=== PATIENT | female | born 1955 | race Caucasian/White ===

== ENCOUNTER → 2023-06-06 14:14 | Outpatient (CLI) | payer MEDICARE, SELFPAY ==
[2023-06-06 14:53] LABS: Add Manual Diff / Slide Review NO; Basophils Absolute Auto 100 /uL (0-100); Basophils Percent Auto 0.8 % (0-2); Eosinophils Absolute Auto 400 /uL (0-450); Eosinophils Percent Auto 5.7 % (2-4); Hematocrit 39.3 % (36-46); Hemoglobin 13.4 g/dL (12.0-16.0); Lymphocytes Absolute Auto 1600 /uL (1100-4500); Lymphocytes Percent Auto 24.6 % (25-40); Mean Corpuscular HGB Conc 34.2 % (30-36); Mean Corpuscular Hemoglobin 34.8 PG (26-34); Mean Corpuscular Volume 101.7 fL (80-100); Monocytes Absolute Auto 300 /uL (0-900); Monocytes Percent Auto 4.8 % (3-14); Neutrophils Absolute Auto 4200 /uL (1500-7000); Neutrophils Percent Auto 64.1 % (50-75); Platelet Count 240 X10^3/uL (150-400); Red Blood Cell Count 3.86 X10^6/uL (4.0-5.2); Red Cell Distribution Width 14.5 % (11.6-14.8); White Blood Cell Count 6.6 X10^3/uL (4.5-11.0)
[2023-06-06 15:23] LABS: Alanine Aminotransferase 41 IU/L (<35); Albumin 4.5 g/dL (3.5-5.0); Albumin Globulin Ratio 1.7 (1.0-2.8); Alkaline Phosphatase 82 U/L (38-126); Aspartate Aminotransferase 40 IU/L (14-36); BUN Creatinine Ratio 21.9 (6-22); Bilirubin Total 0.5 mg/dL (0.2-1.3); Blood Urea Nitrogen 23 mg/dL (7-17); Calcium 9.2 mg/dL (8.4-10.2); Carbon Dioxide 31 mmol/L (22-32); Chloride 100 mmol/L (98-107); Cholesterol 294 mg/dL (140-199); Estimated Glomerular Filt Rate 59 mL/min (>60); Globulin 2.7 g/dL (1.7-4.1); Glucose 146 mg/dL (80-110); HEMOLYSIS < 15 (0-50); Hemoglobin A1C% w Est Avg Glu 5.4 % (4.0-6.0); Potassium 4.3 mmol/L (3.4-5.1); Sodium 137 mmol/L (137-145); Total Protein 7.2 g/dL (6.3-8.2); Triglycerides 146 mg/dL (35-150)
[2023-06-06 15:31] LABS: HDL Cholesterol 125 mg/dL (40-60); LDL Cholesterol Calculated 140 mg/dL (<100)
[2023-06-06 15:51] LABS: TSH w/ Reflex to FT4 2.23 uIU/mL (0.47-4.68)
[2023-06-06 18:30] LABS: Creatinine Urine Random 110.4 mg/dL
[2023-06-06 18:35] LABS: Microalbumi Creatinin Ratio Ur 48.9 ug/mg CR (<30); Microalbumin Urine Random 5.4 mg/dL (0-1.6)
== END ==
PROVIDERS: PCP Family Medicine; Referring Provider Family Medicine; Visit Provider Family Medicine
DX: G25.0 Essential tremor (principal); I10 Essential (primary) hypertension; E78.5 Hyperlipidemia, unspecified; E03.9 Hypothyroidism, unspecified
CPT/HCPCS: 36415; 80053; 80061; 82043; 82570; 83036; 84443; 85025

== ENCOUNTER → 2023-09-19 13:20 | Outpatient (CLI) | payer MEDICARE, SELFPAY ==
[2023-09-19 13:52] LABS: Add Manual Diff / Slide Review NO; Basophils Absolute Auto 0 /uL (0-100); Basophils Percent Auto 0.4 % (0-2); Eosinophils Absolute Auto 100 /uL (0-450); Eosinophils Percent Auto 1.1 % (2-4); Hematocrit 36.6 % (36-46); Hemoglobin 12.8 g/dL (12.0-16.0); Lymphocytes Absolute Auto 1500 /uL (1100-4500); Lymphocytes Percent Auto 13.7 % (25-40); Mean Corpuscular Hemoglobin 36.1 PG (26-34); Monocytes Absolute Auto 700 /uL (0-900); Monocytes Percent Auto 6.7 % (3-14); Neutrophils Absolute Auto 8700 /uL (1500-7000); Neutrophils Percent Auto 78.1 % (50-75); Platelet Count 265 X10^3/uL (150-400); Red Blood Cell Count 3.55 X10^6/uL (4.0-5.2); White Blood Cell Count 11.2 X10^3/uL (4.5-11.0)
[2023-09-19 13:58] LABS: Hemoglobin A1C% w Est Avg Glu 4.9 % (4.0-6.0)
[2023-09-19 14:14] LABS: Albumin 4.4 g/dL (3.5-5.0); BUN Creatinine Ratio 20.8 (6-22); Blood Urea Nitrogen 20 mg/dL (7-17); C-Reactive Protein Quant 8.9 mg/dL (<1.0); Calcium 9.4 mg/dL (8.4-10.2); Carbon Dioxide 27 mmol/L (22-32); Chloride 103 mmol/L (98-107); Estimated Glomerular Filt Rate > 60 mL/min (>60); Glucose 111 mg/dL (80-110); HEMOLYSIS < 15 (0-50); Potassium 4.1 mmol/L (3.4-5.1); Sodium 139 mmol/L (137-145)
[2023-09-19 14:26] LABS: Prealbumin 27.4 mg/dL (17.6-36.0)
[2023-09-19 14:29] LABS: Erythrocyte Sedimentation Rate 29 MM/HR (0-20)
[2023-09-19 14:43] LABS: Vitamin D 25 Hydroxy (D3) 49.4 ng/mL (30.0-100.0)
== END ==
PROVIDERS: PCP Family Medicine; Referring Provider Orthopaedic Surgery Adult Reconstructive Orthopaedic Surgery; Visit Provider Orthopaedic Surgery Adult Reconstructive Orthopaedic Surgery
DX: R77.0 Abnormality of albumin (principal); R73.9 Hyperglycemia, unspecified; E55.9 Vitamin D deficiency, unspecified; Z01.812 Encounter for preprocedural laboratory examination; R70.0 Elevated erythrocyte sedimentation rate; R79.82 Elevated C-reactive protein (CRP)
CPT/HCPCS: 36415; 80048; 82040; 82306; 83036; 84134; 85025; 85651; 86140

== ENCOUNTER → 2023-11-21 15:25 | Outpatient (CLI) | payer MEDICARE, SELFPAY ==
--- NOTE | 2023-11-21 15:26 | DI.RAD.S_ITS ---
PROCEDURE: XR DEXA AXIAL SKELETON INDICATIONS: screening COMPARISON: None. FINDINGS: Lumbar Spine: Bone mineral density 1.338 g/cm2, T score 2.6 Left Hip: Bone mineral density 1.165 g/cm2, T score 1.8 Left Forearm: Bone mineral density 0.67 g/cm2, T score 0.9 Fracture Risk Calculation (when applicable): 10-year fracture risk of a major osteoporotic fracture 8 percent and of a hip fracture 0.1 percent. (T score greater or equal to -1.0 to: NORMAL) (T score from -1.1 to -2.4: OSTEOPENIA) (T score less than or equal to -2.5: OSTEOPOROSIS) IMPRESSION: Normal bone mineral density of the lumbar spine, left hip, and left forearm. Follow-up guidelines as follows: Osteoporosis: Consider a repeat DEXA and Vertebral Fracture Assessment (VFA) exam in 2 years or sooner if medically necessary, to reassess this patient's status. Osteopenia: Consider a repeat DEXA in 2-3 years to reassess this patient's status, or if there is a new clinical indication. Normal: Consider a repeat DEXA in 5 years or sooner, or if there is a new clinical indication. All treatment decisions require clinical judgment and consideration of individual patient factors, including patient preferences, comorbidities, previous drug use, risk factors not captured in the FRAX model (e.g., frailty, falls, vitamin D deficiency, increased bone turnover, interval significant decline in bone density ) and possible under- or over-estimation of fracture risk by FRAX. In addition, the NOF Guide recommends that FDA-approved medical therapies be considered in postmenopausal women and men age >= 50 years with a: * Hip or vertebral (clinical or morphometric) fracture * T-score of <=-2.5 at the spine or hip * Ten-year fracture probability by FRAX of >= 3% for hip fracture or >=20% for major osteoporotic fracture. People with diagnosed cases of osteoporosis or at high risk for fracture should have regular bone mineral density tests. For patients eligible for Medicare, routine testing is allowed once every 2 years. The testing frequency can be increased to one year for patients who have rapidly progressing disease, those who are receiving or discontinuing medical therapy to restore bone mass, or have additional risk factors. Dictated by: Maurizio Alves M.D. on 11/21/2023 at 16:34 Approved by: Maurizio Alves M.D. on 11/21/2023 at 16:36
--- NOTE | 2023-11-21 15:26 | DI.MG.S_ITS ---
BILATERAL DIGITAL SCREENING MAMMOGRAM 3D/2D WITH CAD: 11/21/2023 CLINICAL: Routine screening. Comparison is made to exams dated: 03/28/2021 mammogram and 11/10/2018 mammogram - outside facility. There are scattered areas of fibroglandular density (category b / 25%-50% glandular tissue). Current study was also evaluated with a Computer Aided Detection (CAD) system. No significant masses, calcifications, or other findings are seen in either breast. There has been no significant interval change. IMPRESSION: NEGATIVE There is no mammographic evidence of malignancy. A 1 year screening mammogram is recommended. Based on the Tyrer Cuzick model (a risk assessment model) the patient's lifetime risk is 4.7% and her 10 year risk is 2.4%. According to the ACR, ACS, and NCCN guidelines, an annual breast MRI exam along with mammogram is recommended if the patient's lifetime risk is 20% or greater. This exam was interpreted at Station ID: [id number]. NOTE: For mammograms, a report in lay terms will be sent to the patient. Approximately 15% of breast malignancies will not be visualized mammographically. In the management of a palpable breast mass, a negative mammogram must not discourage biopsy of a clinically suspicious lesion. Electronically Signed By: Davie chun/chantale:11/24/2023 07:37:12 letter sent: Normal Exam ACR BI-RADS Category 1: Negative
== END ==
PROVIDERS: PCP Family Medicine; Referring Provider Family Medicine; Visit Provider Family Medicine
DX: Z12.31 Encounter for screening mammogram for malignant neoplasm of breast (principal); M85.89 Other specified disorders of bone density and structure, multiple sites
CPT/HCPCS: 77063; 77067; 77080; 77081

== ENCOUNTER 2024-01-02 11:42 | Inpatient (IN) | payer MEDICARE, SELFPAY ==
[2023-12-25 13:46] VITALS: BMI 30.2
[2024-01-02] VITALS (16 sets, daily range): BP systolic 95–166; BP diastolic 41–118; PULSE 70–97; RESP 10–20; TEMP 36.1–37.3; O2SAT 94–100; BMI 30.7
--- NOTE | 2024-01-02 06:00 | DI.RAD.S_ITS ---
PROCEDURE: XR KNEE LT 1TO2V INDICATIONS: TKA TECHNIQUE: 2 view(s) of the knee acquired. COMPARISON: [facility] [place], [place], XR KNEE 1 OR 2 VIEWS LEFT, 09/18/2023, 9:44. [facility] [place], XR BONE LENGTH SCANOGRAM, 12/05/2023, 15:14. FINDINGS: Bones: Patient is status post knee joint arthroplasty. Hardware components are in expected positions. Visualized bony structures are intact. Soft tissues: Overlying postoperative changes are noted. IMPRESSION: Expected post-operative appearance of a knee arthroplasty. Dictated by: Barrie Bess M.D. on 01/02/2024 at 17:26 Approved by: Barrie Bess M.D. on 01/02/2024 at 17:27
[2024-01-02] MEDS: MELOXICAM 7.5 MG TABLET 15 MG PO (12:39)
[2024-01-02] MEDS: LACTATED RINGERS 1,000 ML 42 ML IV ×2 (12:39→14:46)
[2024-01-02] MEDS: SCOPOLAMINE 1 PATCH TOP (12:39)
[2024-01-02] MEDS: ACETAMINOPHEN 325 MG TABLET 975 MG PO ×2 (12:39→21:29)
--- NOTE | 2024-01-02 12:46 | PM.PREOP ---
Pre-operative Note Interval Note History & Physical reviewed/Exam performed by Physician: Yes Changes to H&P: No
[2024-01-02] MEDS: TRANEXAMIC ACID 1,000 MG VIAL 1000 MG INJ ×2 (13:45→15:26)
[2024-01-02] MEDS: CEFAZOLIN 2 GM/100 ML PREMIX 100 ML IV ×2 (13:53→21:08)
--- NOTE | 2024-01-02 14:11 | SUR.OPER ---
Supine on padded OR bed. Pillow under head, arms secured on padded armboards <90 degree abduction. Safety belt across torso. Non-operative leg secured with tape over blanket over lower leg. Operative leg secured in DeMayo/Miko/Nathe positioner. Foam padded brace at thigh of operative leg.
[2024-01-02] MEDS: ROPIVACAINE/EPI/CLONIDINE/KET 50 ML SYRINGE INJ (14:36)
[2024-01-02] MEDS: VANCOMYCIN 1,000 MG VIAL 1000 MG INTRA-ARTI (14:37)
--- NOTE | 2024-01-02 15:44 | PM.OP.1 ---
Operative Date/Time/Diagnoses Date of procedure: 01/02/24 Pre-op diagnosis: Progression of lateral compartment left knee osteoarthritis following prior medial unicompartmental knee arthroplasty Post-op diagnosis: same Procedure & Clinicians Procedure: 1. Dual component revision of prior partial knee arthroplasty to total knee arthroplasty (48408-45) 2. Interosseous administration of drugs in the tibia (29466) Same procedure as scheduled: Yes Surgeon: Jl Jenkins Rehab Consultant: Ileana Hines Anesthesia Type: Spinal, Sedation, Peripheral nerve block and Local Operative Notes Estimated Blood Loss (mL): 150 Procedure in detail: Laterality Gap-Balanced Jovany Persona Medial-Congruent Primary Total Knee Arthroplasty Implants: Size 7 narrow Cruciate Retaining Femoral Component Size D Tibial Component with 14 x 30 stem extension Size 16 Medial Congruent Polyethylene Insert Unresurfaced Patella Procedure Summary: This 68-year-old female patient had a prior medial unicompartmental knee arthroplasty and had significant progression of her lateral compartment arthritis on presentation to me. She was counseled regarding the risks and benefits of conversion to total knee arthroplasty and elected to proceed with this procedure. Intraoperatively today I removed the femoral and tibial components of the prior partial knee arthroplasty the using the cuts for the distal femur and proximal tibia respectively. For the proximal tibia cut I referenced off of the polyethylene insert and needed to cut 12 mm to get underneath the old base plate. Because of this larger than typical tibial cut I found that a 16 mm polyethylene insert was appropriate. The femur rotation was set by replacing the femoral component to allow the gap major appliance assembly supervisor to function appropriately which registered a balanced femoral rotation of 5? of external rotation. This was then replicated with the use of an osteotome to allow for balanced between the extension and flexion gaps as well as the medial and lateral compartments. A stem extension was used on the tibia given the prior tibial base plate from the medial unicompartmental arthroplasty. There were some areas in which the peg holes from the prior tibial component extended down below the cut surface of the tibia. The cement was removed from those areas and they were refilled with new cement. Procedure in Detail: This patient was seen preoperatively and evaluated for knee pain which was refractory to numerous nonoperative treatment modalities. Their pain correlated with radiographic changes demonstrating significant degeneration in the knee joint. The risks and benefits of continued nonoperative management versus operative management were discussed at length and all of the patient?s questions were answered. Additional educational materials providing further details beyond our discussion in clinic were provided via a publicly available patient education video which included the incidence of medical complications associated with total knee arthroplasty, reasons for revision following total knee arthroplasty, and patient satisfaction rates following total knee arthroplasty. That video can be accessed at [email or web address] . With this understanding of the risks inherent to the procedure, the patient elected to move forward with operative management. Following preoperative optimization, the patient was scheduled for surgery. The patient was met in the preoperative holding area the day of the procedure and all questions were answered. The patient?s nares were swabbed with betadine in order to decolonize them from MRSA. Informed consent was signed and the left limb was marked with indelible ink.? The patient was brought back to the operating room where anesthesia was induced. The patient was transferred to the operating table and all bony prominences were padded. The operative site was prepped and draped in the usual sterile fashion. A second prep stick was utilized following drape placement. The incision was marked corresponding to the medial aspect of the tibial tubercle and the patella. Ioban was wrapped circumferentially around the knee. Prior to incision, tranexamic acid and cefazolin were administered. Templating images were displayed. A timeout procedure was performed verifying the patient?s identity, medical comorbidities, allergies, relevant medications, anesthesia type and the surgical plan. All present were in agreement. The assistance of a physician photographer's assistant was required for positioning, room setup, soft tissue retraction and wound closure. Without this assistance, the procedure would have been significantly more challenging and time consuming.?? The tourniquet was inflated prior to incision. I made an anterior incision over the knee, dissected through the subcutaneous tissues and identified the lateral border of the VMO. Medial and lateral soft tissue flaps were developed. I inserted an intraosseous needle into the tibia through the synovium and infiltrated the tibia with 50 mL of dilute vancomycin. I was able to visualize this egressing out of the soft tissues indicating that it had filled up the venous system while the tourniquet was inflated. A medial parapatellar arthrotomy was performed ensuring that adequate capsular tissue would remain for closure at the conclusion of the procedure. The hip was brought into extension and the medial soft tissues were released off the joint line of the tibia. Tissue overlying the distal anterior femur was released to allow for later assessment for anterior notching but left in place. A portion of the retropatellar fat pad was excised while protecting the patellar tendon. The patella was everted. The patella was not resurfaced. Osteophytes were excised and a lateral facetectomy was performed. The patella was released from its everted position.?? I flexed the knee to 90 degrees and placed retractors to allow access to the notch. An opening reamer was used to gain access to the femoral canal and an intramedullary brian was introduced into the canal. Diaphyseal fit was obtained in order to allow a distal femoral resection at 5 degrees relative to the anatomic axis, thereby aiming to achieve mechanical alignment of the eventual implant. A +2 resection was planned and assessed using an eliseo wing. I then made the cut using a sagittal saw. This intersected with the prior femoral component. I cut off the lateral condyle and then used a narrow saw to extend the cut around the pegs of the old femoral component. This freed the femoral component and was able to remove it by hand. I then re ran the cut to ensure it was even between the medial and lateral compartments. This provided additional access to the femoral notch. The ACL and PCL were excised. Retractors were placed on the lateral and medial tibia. I hyperflexed the knee while externally rotating it to sublux the tibia anteriorly. I placed a PCL retractor posteriorly and used this to provide additional anterior subluxation. The remainder of the PCL root was released. An intramedullary reamer was used in the ACL footprint to provide access to the tibial canal. An extramedullary guide was positioned to allow a resection perpendicular to the anatomic and mechanical axes of the tibia, thereby aiming to achieve mechanical alignment of the eventual implant. A +10 resection off of the polyethylene insert from the prior partial knee arthroplasty was planned and the tibial cutting jig was pinned in place. I evaluated the cut depth, varus-valgus alignment and slope of the planned tibial resection and deemed them satisfactory. I initially made this cut and found that it intersected the undersurface of the tibial base plate so I added 2 to the cut to get a +12 cut. This then was able to pass under most of the tibial component although it did intersect the pegs. The oscillations of the saw against those pegs freed them from the underlying bone and I was able to remove it by hand and then finish the cut. I cut the tibia with a sagittal saw while using retractors to protect the MCL, patellar tendon, and posterolateral structures.? The knee was repositioned in extension and the Fuzion soft tissue balancing gauge was introduced. This demonstrated that there was equal tension in the medial and lateral compartments of the knee with the knee in full extension and no additional soft tissue releases were necessary. When 40 pounds of force was applied to the Fuzion device, the extension gap opened to 14 mm. I moved the knee into 90 degrees of flexion, and the Fuzion device was recalibrated by removing a 9 mm crispin to allow assessment of the flexion gap. The Fuzion was placed perpendicular to the resected surface of the tibia and the resected surface of the distal femur. I replaced the femoral component from the old medial unicompartmental arthroplasty and used this to set the paddles for the gap tensioner. Forty pounds of traction was applied to match the tension of the extension gap. This externally rotated the femur to 5 degrees. I then replicated this using an osteotome to ensure that I got appropriate femoral rotation which matched the parameters that I had arrived at when using the original implant. Pins were placed in the mm holes. The measured resection guide was placed over the pins to allow sizing. Appropriate sizing was determined and a 4-in-1 block was placed. This was double checked using the Fuzion device to ensure that it would open to an equal distance as the extension gap when the same amount of force was applied. The Fuzion block was also used to assess flexion gap symmetry. An eliseo wing was used to ensure there would be no anterior notching. Retractors were placed to protect the soft tissues during resection. Captured cuts were performed with a sagittal saw for the anterior and posterior femur as well as the corresponding chamfers.? Trial components were placed and the construct was assessed. Range of motion was assessed by ensuring the knee could achieve full extension and assessing maximum passive knee flexion by elevating the femur and allowing the heel to passively fall towards the buttock. Gap symmetry was assessed by stressing the medial and lateral compartments in both extension and flexion. Laxity was assessed in both extension and flexion and the polyethylene trial was adjusted with shims as necessary. Patellar tracking was assessed with knee flexion. Once satisfied with the construct, I moved forward with implant insertion. Lug holes were drilled in the femur and the tibia was prepped ensuring appropriate sizing and rotation relative to the tibial tubercle.?? The bony ends were irrigated and cement was prepared. Portions of the anterior chamfer cut were utilized as cement restrictors in the femur and tibia where intramedullar rods had been utilized. Cement was placed on the entirety of the undersurface of both the tibial and femoral components. Cement was placed onto the dry tibia and pressurized into the cancellous bone. I impacted the tibial component into place. Cement was removed. The tibia was reduced underneath the femur and placed cement onto the dry surface of the resected femur. I placed the femoral component as well as the intended polyethylene trial. Cement was removed from around the femur. I brought the knee into extension and manually pressurized the construct by pushing on the heel while the cement dried. The knee was bathed in a dilute mixture of betadine and peroxide. A mixture of Ropivacaine, Epinephrine, Clonidine and Toradol was infiltrated throughout the soft tissues into structures including the VMO, patellar tendon, quadriceps tendon, MCL and femoral periosteum. A low adductor canal block was also performed using this mixture unless one had been placed preoperatively by anesthesia. The knee was copiously irrigated with pulse lavage. Once cement had been allowed to dry the knee was again trialed. Range of motion was assessed by ensuring the knee could achieve full extension and assessing maximum passive knee flexion by elevating the femur and allowing the heel to passively fall towards the buttock. Gap symmetry was assessed by stressing the medial and lateral compartments in both extension and flexion. Laxity was assessed in both extension and flexion and the polyethylene trial was adjusted with shims as necessary. Patellar tracking was assessed with knee flexion. The tourniquet was let down and the polyethylene trial was removed. I inspected the knee inspected for excess cement and any residual bleeding. Once hemostasis was achieved I inserted the final polyethylene and ensured appropriate engagement of the dovetail locking mechanism.?? The arthrotomy was closed with absorbable interrupted suture ensuring that this extended to the top of the arthrotomy. This was backed up with running barbed suture throughout the arthrotomy. The skin was closed with 2-0 and 3-0 sutures. Surgical glue was applied and a soft dressing was placed.?The sponge, instrument and needle counts were reported as being correct at the end of the case.??No obvious complications occurred. The patient was transferred from the operating table back to a stretcher. The patient emerged from anesthesia without difficulty and was taken to the PACU in a stable condition.? Plan for aftercare: Weightbearing as tolerated Three cultures were sent during today's procedure. These will be followed for Gram stain anaerobic and aerobic cultures. The patient will remain on Ancef while we await final results. I anticipate they will be negative and she can discharge before the final results return Isma incisional wound VAC Aspirin 81 twice per day for DVT prophylaxis Patient is unable to take NSAIDs due to her kidney condition. Additionally she has fibromyalgia. She can receive acetaminophen and this will be utilized as well as a generous icing protocol for the knee. Additionally I will order her as needed Dilaudid should this become necessary for breakthrough pain Anticipate discharge home likely on Friday. Do not anticipate that a penitentiary facility will be necessary for her Follow up at [facility] in 2 weeks Detailed postoperative instructions available at [email or web address]
[2024-01-02] MEDS: hydrOXYzine 50 MG/ML INJ 25 MG IM (16:18)
[2024-01-02] MEDS: ONDANSETRON 4 MG/2 ML INJ IV (16:18)
[2024-01-02] MEDS: OXYCODONE IR 5 MG TABLET PO ×2 (16:19→17:32)
[2024-01-02] MEDS: HYDROMORPHONE 1 MG INJ IV ×2 (16:19→16:32)
[2024-01-02] MEDS: LACTATED RINGERS 1,000 ML 100 ML IV ×2 (17:30→19:24)
[2024-01-02] MEDS: HYDROMORPHONE 0.5 MG INJ IV ×2 (18:10→22:07)
[2024-01-02] MEDS: LOSARTAN 50 MG TABLET 100 MG PO (18:43)
[2024-01-02] MEDS: TRIAMTERENE/HCTZ 37.5/25 CAPSULE 1 CAP PO (18:44)
--- NOTE | 2024-01-02 18:51 | PC.NURSE ---
Patient arrived from PACU this evening at 1710. She is A&OX4. SBP elevated, patient c/o 6-10/10 pain. MD notified and increased frequency of hydromorphone. She appears more comfortable this evening. Ice to L Knee. Cortez wrap C/D/I, KATHY flashing green light. Patient denies numbness to BLE's. She last voided at noon, due to void at 2000. She tolerates dinner well. SCD's, IVF LR at 100ml/hr, continuous pulse ox, admission assessment, q 2 turning, call light in reach, POST OP VS, continuou monitoring.
[2024-01-02] MEDS: diphenhydrAMINE 25 MG TABLET PO (19:22)
[2024-01-02] MEDS: GABAPENTIN 100 MG CAPSULE 200 MG PO (21:09)
[2024-01-02] MEDS: DOCUSATE 100 MG CAPSULE PO (21:09)
[2024-01-02] MEDS: ASPIRIN EC 81 MG TABLET PO (21:09)
[2024-01-02] MEDS: methocarbamoL 500 MG TABLET PO (21:12)
[2024-01-02] MEDS: HYDROMORPHONE 2 MG TABLET PO (21:40)
--- NOTE | 2024-01-02 22:10 | PC.NURSE ---
Went to check on the patient after she put her call light on, complaint of pain in her left post operative knee, after inquiring about her previous dose of hydromorphone IVP and Opioids-Morphine Analogues listed as her allergy, PO and IV dose of Hydromorphone were administered. After about 15 minutes I then proceeded to discuss pain management with longer lasting pain medication regimen which Oxycodone are already ordered and administered previously, after inquiring about her previous dose of Oxycodone and Opioids-Morphine Analogues allergy patient stated that she had an allergic reaction to the Oxycodone and had Benadryl earlier, Flight Coordinator and RN assigned to this patient was notified.
[2024-01-03] VITALS (7 sets, daily range): BP systolic 119–176; BP diastolic 65–90; PULSE 88–96; RESP 12–20; TEMP 36.4–37.6; O2SAT 95–100
[2024-01-03] MEDS: HYDROMORPHONE 0.5 MG INJ IV ×8 (00:30→22:08)
[2024-01-03] MEDS: HYDROMORPHONE 2 MG TABLET PO ×5 (01:15→22:54)
--- NOTE | 2024-01-03 04:09 | PC.NURSE ---
mold shifter From start of shift, Patient was very agitated and in great pain. RN attempted to establish a baseline of communication and standards along with plan of care for the evening; Pt was so agitated/angry due to poor pain control that she was unable to express herself clearly with concerns and her unsatisfactory feelings of care. RN reassured, listened to Pt and informed Pt that action will be taken to correct the current situation; fx artist notified, MD front desk specialist Dr Jay updated on Pt pain control issues, along with state of agitation. MD gave new Rx orders (Note EMAR) for better pain control. Once pain medication was administered Pt felt relieve and was able to calm down and communicate clearly her expectation and her prior experiences. Pt apologized for her behavior to RN and expressed how frustrated she was with her prior care and felt that it was very unsatisfactory.
[2024-01-03] MEDS: LACTATED RINGERS 1,000 ML 100 ML IV (05:05)
[2024-01-03] MEDS: CEFAZOLIN 2 GM/100 ML PREMIX 100 ML IV ×3 (05:32→22:09)
[2024-01-03] MEDS: ACETAMINOPHEN 325 MG TABLET 975 MG PO ×2 (05:32→14:22)
[2024-01-03 06:40] LABS: Hematocrit 33.1 % (36-46); Hemoglobin 11.3 g/dL (12.0-16.0)
[2024-01-03] MEDS: LOSARTAN 50 MG TABLET 100 MG PO (08:13)
[2024-01-03] MEDS: DOCUSATE 100 MG CAPSULE PO ×2 (08:13→20:24)
[2024-01-03] MEDS: polyethylene glycoL 3350 17 GM POWD.PACK PO (08:13)
[2024-01-03] MEDS: methocarbamoL 500 MG TABLET PO ×4 (08:13→20:24)
[2024-01-03] MEDS: GABAPENTIN 100 MG CAPSULE 200 MG PO ×3 (08:14→20:23)
[2024-01-03] MEDS: TRIAMTERENE/HCTZ 37.5/25 CAPSULE 1 CAP PO (08:14)
[2024-01-03] MEDS: ASPIRIN EC 81 MG TABLET PO ×2 (08:14→20:24)
--- NOTE | 2024-01-03 09:23 | P.PN_ITS ---
Subjective Subjective Date Patient Seen: 01/03/24 Time Patient Seen: 09:23 Interval history: Pt lying in bed, very uncomfortable, tearful over events of last evening. She is allergic to opioids - these cause severe hives. Despite this, she was ordered and given oxycodone. She can tolerate synthetic opioids, ie, hydromorphone and tramadol. She was not ordered hydromorphone until about 2200 last night. She does NOT have fibromyalgia. She is requesting an anti- inflammatory, which the surgical team was told she couldn't take. Exam Vital Signs (past 8 hours): - 01/03/24 05:15 01/03/24 08:00 01/03/24 08:13 Temperature 97.6 F 98.2 F Pulse Rate 95 H 91 H Respiratory Rate 18 12 Blood Pressure 119/65 135/84 138/80 Pulse Oximetry 100 100 Oxygen Flow Rate 0 2 Oxygen Delivery Method Room Air Oxygen Flow Rate 2 Narrative Exam Narrative: 4/5 hip flexors, quadriceps, hamstrings; 5/5 PF, DF, EHL on left. Sensation to light touch intact throughout LLE. Calf soft and compressible. KAREN over KATHY is CDI; KATHY is functioning. Objective Labs 01/03/24 05:30 Labs: Laboratory Results - last 24 hr 01/03/24 05:30 Hgb 11.3 L Hct 33.1 L PFSH Medical History (Updated 01/03/24 @ 09:41 by Ileana Hines PA-C) Benign essential HTN Hot flashes Microalbuminuria CKD (chronic kidney disease) stage 3, GFR 30-59 ml/min Encounter for subsequent annual wellness visit (AWV) in Medicare patient Osteoarthritis (~1984) Painful menstrual periods Irregular menstrual cycle Fibroids (~1970) Hyperlipidemia Hypothyroidism Benign essential tremor Surgical History (Updated 01/03/24 @ 09:40 by Ileana Hines PA-C) History of right hip replacement (2015) S/P cervical spinal fusion (2014) Status post left partial knee replacement (08/08/20) Status post hysterectomy Family History Father Suicide Mother Cancer Diabetes mellitus History of heart disease Hypertension Stroke Social History household members: spouse Smoking Status: Former smoker alcohol intake: current Assessment & Plan Post-op Assessment and plan (1) Total knee replacement status: Assessment and Plan narrative: Pain control difficulty has prevented progress w/ PT. Plan is to establish better pain management, work w/ PT today, and hopefully send home tomorrow. (2) Allergy to opioid analgesic: Assessment and Plan narrative: Oxycodone d/c'd. Tramadol ordered for moderate pain; hydromorphone ordered for severe pain. Scheduled methocarbamol ordered. (3) CKD (chronic kidney disease) stage 2, GFR 60-89 ml/min: Assessment and Plan narrative: In review of her chart, CKD was the reason given by both our office and anesthesia for not giving NSAIDs; however, most recent Cr was WNL and GFR was >60. Will add meloxicam 7.5mg BID. Postoperative Procedures: Procedures Operation Date: 01/02/24 13:45 Actual Procedure Side Surgeon p Revision of prior unicompartmental left knee arthroplasty to total knee arthroplasty Left Jl Jenkins MD Postoperative day: 1
[2024-01-03] MEDS: MELOXICAM 7.5 MG TABLET PO ×2 (09:42→20:24)
--- NOTE | 2024-01-03 10:41 | PT-IP ANOTE ---
PT walt received and EMR reviewed. checked on pt and pt refused PT. pt stated that it is only now that they have her pain meds sorted out and does not want to get out of the bed to aggravate the pain. pt stated that she will get up tomorrow. educated pt on importance of mobility and agreed for PT to check back later today. obtained PLOF and home set up. provided pt with post-op folder.
--- NOTE | 2024-01-03 12:41 | CM.DANOTE ---
Patient is a 68 yo F admitted for knee revision, POD 1. Patient is agitated and answers are limited. RN states she is upset he will not administer IV and PO pain medications together. Patient lives at home with spouse and states she has outpatient PT arranged. PT rec not given, yet, as patient declined to participate with PT today. Expressed importance of patient working with PT to make sure her d/c plan is still appropriate. No other needs expressed or identified at this time. Will need f/u if PT rec. change from outpatient. Ortho PA note, hopeful for d/c on 01/03. KRISTEL Meyer Discharge Planning/Care Management CM Discharge Assessment Start: 01/03/24 12:39 Freq: Status: Active Protocol: Document 01/03/24 12:40 KG (Rec: 01/03/24 12:41 KG [id number]) Discharge Planning Assessment Assigned Cia Agent Sadie Chance Advance Directives? Yes Advance Directives on File No History Provided By Patient Has Patient been admitted in last 30 No days? Prior Living Arrangements House Household Members spouse Independent with ADL's Yes Is patient alert and oriented? Yes Patient/Family Preference OP PT Therapy Barriers to Discharge No Referrals Initiated None needed If patient plan is home with home health No : Has signed face to face form been completed? Medicare Choice List Provided No Pre-Anesthesia Assessment Start: 12/25/23 13:46 Freq: Status: Active Protocol: Document 12/25/23 13:46 LB (Rec: 12/25/23 14:28 LB [id number]) Pre-Anesthesia Assessment PAC Comment 12/25/23 Phone assessment. Patient Information Reviewed Via Phone Assessment Assessment Completed With Patient Diagnostic Results BMP/CMP,CBC,EKG Comment 09/19/23 at . Primary Care Provider Gage Hancock Seen Specialist in Last 12 Months Yes Specialist Seen Orthopedist Primary Language Danish Preferred Language Danish Senior Education Specialist Required No Height 165.1 cm Weight 82.554 kg Body Mass Index (BMI) 30.2 Hearing Ability Normal Visual Assist Glasses Dentition Type Teeth, Natural Present Barriers to Learning None Other Aids No Hx Anesthesia Reactions Yes: Slow to waken Hx Family Anesthesia Reaction No Hx Malignant Hyperthermia No Hx Blood Transfusions No Anesthesia Review Requested Yes Additional comment Anesthesia review done . 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 Substance Use Type does not use Pain Present Pain Reported Comment Left knee. Musculoskeletal Symptoms Difficulty Walking,Joint Pain History of Falling (Recent or History of No ) Patient is completely paralyzed or No completely immobile Mental Status Oriented to own ability Comment Will bring walker. Is patient on oxygen? No Hx Sleep Apnea No Currently Taking a Beta [place] No Can You Climb a Flight of Stairs Without Yes SOB Hx Chest Pain No Hx SOB No Hx Syncope or Dizziness No Anti-Coagulant Therapy No Has a Perforator Operator No Cardiac Testing No Hx Pacemaker/ICD No Cardiac Clearance Received Not Applicable Dysphagia No Chronic UTI No Urinary Catheter Present No Hx Urinary Self Catheterization No Diabetes No Patient No Lactating No Hx Drug Resistant Organism No Presence of External or Internal Medical Yes: left knee, right hip, Devices neck hardware Have you had any close contact with No someone diagnosed with COVID-19? Are you experiencing any of these No symptoms symptoms? Comment Denies covid last 2 months. Marital Status Lives With spouse Current Living Arrangements House Number of Floors (Floors) One Floor Number of Stairs To Enter/Railing? 1 step to enter without railing. Support System Spouse Does the Patient Have Assistance After Yes Surgery Patient Discharge Plan Description Return Home Additional comment Advised possible overnight LOS . Feels Safe in Current Environment Yes Do you have a plan to hurt yourself or No Plan others? Emergency Contact Name Melba Rayo - Emergency Contact Advance Directives? Yes Advance Directives on File No Requested Patient Bring Advanced Yes Directives DOS PAC Instructions Assistance for 24 hours post- op,Do not shave/clip surgical site,Durable medical equipment ,Medications to take/avoid,No ETOH/petroleum product on skin DOS,NPO,Post-op transportation,Pre-surgical wash,Sensory aids,Sturdy shoes /comfortable clothes,Do not bring valuables and remove jewelry
--- NOTE | 2024-01-03 13:49 | PT-IP ANOTE ---
checked back on pt and pt refused PT. agreed to do PT tomorrow.
[2024-01-03] MEDS: TRAMADOL 50 MG TABLET PO (17:31)
[2024-01-04] MEDS: HYDROMORPHONE 0.5 MG INJ IV ×7 (01:06→19:51)
[2024-01-04 02:51] VITALS: BP 153/84; PULSE 108; RESP 18; TEMP 36.1; O2SAT 98
[2024-01-04] MEDS: HYDROMORPHONE 2 MG TABLET PO ×4 (03:53→22:46)
[2024-01-04] MEDS: CEFAZOLIN 2 GM/100 ML PREMIX 100 ML IV ×3 (05:15→21:11)
[2024-01-04 08:00] VITALS: BP 121/80; PULSE 109; RESP 16; TEMP 37.1; O2SAT 95
[2024-01-04] MEDS: ACETAMINOPHEN 325 MG TABLET 975 MG PO ×2 (08:17→21:11)
[2024-01-04] MEDS: ASPIRIN EC 81 MG TABLET PO ×2 (08:18→21:10)
[2024-01-04] MEDS: methocarbamoL 500 MG TABLET PO ×4 (08:18→21:10)
[2024-01-04] MEDS: LOSARTAN 50 MG TABLET 100 MG PO (08:18)
[2024-01-04] MEDS: DOCUSATE 100 MG CAPSULE PO ×2 (08:18→21:10)
[2024-01-04] MEDS: GABAPENTIN 100 MG CAPSULE 200 MG PO ×3 (08:18→21:10)
[2024-01-04] MEDS: MELOXICAM 7.5 MG TABLET PO ×2 (08:18→21:10)
[2024-01-04] MEDS: TRIAMTERENE/HCTZ 37.5/25 CAPSULE 1 CAP PO (08:19)
--- NOTE | 2024-01-04 08:47 | PM.PNPO.1 ---
Subjective Subjective Date Patient Seen: 01/04/24 Time Patient Seen: 08:47 Interval history: Ivanna is lying in bed, says she's not sure if she is feeling better today than she did yesterday. She did not work w/ PT or otherwise ambulate yesterday. She remains somewhat anxious and tearful over postop events. Exam Vital Signs (past 8 hours): - 01/04/24 02:51 Temperature 97 F L Pulse Rate 108 H Respiratory Rate 18 Blood Pressure 153/84 H Pulse Oximetry 98 Oxygen Flow Rate 0 Oxygen Delivery Method Room Air Oxygen Flow Rate 0 Narrative Exam Narrative: 3/5 hip flexors, quadriceps, hamstrings; 4/5 PF, DF, EHL on left. Sensation to light touch intact throughout LLE. Calf soft and compressible. KAREN over KATHY is CDI, KATHY functioning. Objective Labs 01/03/24 05:30 PFSH Medical History (Updated 01/03/24 @ 09:41 by Ileana Hines PA-C) Benign essential HTN Hot flashes Microalbuminuria CKD (chronic kidney disease) stage 3, GFR 30-59 ml/min Encounter for subsequent annual wellness visit (AWV) in Medicare patient Osteoarthritis (~1984) Painful menstrual periods Irregular menstrual cycle Fibroids (~1969) Hyperlipidemia Hypothyroidism Benign essential tremor Surgical History (Updated 01/03/24 @ 09:40 by Ileana Hines PA-C) History of right hip replacement (2015) S/P cervical spinal fusion (2014) Status post left partial knee replacement (08/08/20) Status post hysterectomy Family History Father Suicide Mother Cancer Diabetes mellitus History of heart disease Hypertension Stroke Social History household members: spouse Smoking Status: Former smoker alcohol intake: current Assessment & Plan Post-op Assessment and plan (1) Total knee replacement status: Assessment and Plan narrative: PT today. Hopeful home tomorrow if she is able to progress sufficiently today. She denies the need for a rehab facility; wants to go home with her . Continue ASA 81mg BID for VTE prophylaxis. (2) Allergy to opioid analgesic: Assessment and Plan narrative: Hydromorphone, tramadol, and methocarbamol ordered. (3) CKD (chronic kidney disease) stage 2, GFR 60-89 ml/min: Assessment and Plan narrative: Meloxicam ordered. This is for acute pain management and will not be continued for more than 6 weeks. Postoperative Procedures: Procedures Operation Date: 01/02/24 13:45 Actual Procedure Side Surgeon p Revision of prior unicompartmental left knee arthroplasty to total knee arthroplasty Left Jl Jenkins MD Postoperative day: 2
--- NOTE | 2024-01-04 12:07 | PT.IIE ---
Current Diagnoses Unilateral primary osteoarthritis, left knee (01/02/24) Chronic kidney disease, stage 2 (mild) (01/02/24) Allergy status to narcotic agent (01/02/24) Presence of left artificial knee joint (01/02/24) Presence of unspecified artificial knee joint (01/02/24) Surgery Performed Operation Date: 01/02/24 13:45 Actual Procedures p Revision of prior unicompartmental left knee arthroplasty to total knee arthroplasty(Left) - Jl Jenkins MD Surgical History (Last Reviewed 01/02/24 @ 12:40 by Bri Charles, RN) History of right hip replacement (2015) S/P cervical spinal fusion (2014) Status post hysterectomy Status post left partial knee replacement (08/08/20) Medical History (Last Reviewed 01/02/24 @ 12:40 by Bri Charles, RN) Benign essential HTN Benign essential tremor CKD (chronic kidney disease) stage 3, GFR 30-59 ml/min Encounter for subsequent annual wellness visit (AWV) in Medicare patient Fibroids (~1969) Hot flashes Hyperlipidemia Hypothyroidism Irregular menstrual cycle Microalbuminuria Osteoarthritis (~1984) Painful menstrual periods Physical Therapy Inpatient Evaluation/Re-Eval M1 PT/OT-IP Prior Functional Status Start: 01/03/24 10:39 Freq: NEEDED Status: Active Protocol: Document 01/04/24 11:17 MB (Rec: 01/04/24 12:06 KAL [id number]) Medical Review Prior Functional Status Medical History Reviewed Yes Diet/Fluid Consistency Regular Communication WNLs Mobility and Gait Pt reports that she was able to walk her dog and do other tasks but that she had a lot of pain in her left knee. Activities of Daily Living and IADL's I Social History Household Members spouse Living Arrangements House Number of Floors (Floors) One Floor Number of Stairs To Enter/Railing? 1 step to enter and no rail Home Environment Standard Height Toilet,Walk in Shower Home Equipment Front Wheel Walker,Power Wheelchair/Scooter,Hand Held Shower Employment Status Retired M2 PT-IP Current Condition Start: 01/03/24 10:39 Freq: NEEDED Status: Active Protocol: Document 01/04/24 11:17 MB (Rec: 01/04/24 12:06 KAL [id number]) Physical Therapy Current Condition Current Condition Evaluation Date 01/04/24 Treatment Diagnosis Left partial TKR revision M3 PT-IP Subjective Start: 01/03/24 10:39 Freq: NEEDED Status: Active Protocol: Document 01/04/24 11:17 MB (Rec: 01/04/24 12:06 MB [id number]) Subjective Physical Therapy Visit Type Type Initial Evaluation Visit Start Time 11:17 Visit Stop Time 11:45 Number of BILINGUAL ACCOUNT MANAGER Visits 0 Physical Therapy Visit Comments Patient Comments Pt states she is sleepy and she is agreeable to PT. Therapy Pain Assessment Pain When Pain Assessed At Rest Pain Present Pain Present Pain Reported Location Left Knee Intensity 2 Scale Used David (Faces) M4 PT-IP Mobility and Gait Start: 01/03/24 10:39 Freq: NEEDED Status: Active Protocol: Document 01/04/24 11:17 MB (Rec: 01/04/24 12:06 MB [id number]) PT-Bed Mobility Assessment Supine to Sit Supine to Sit Standby Assistance,Head of Bed Elevated,Bedrails Scooting Scooting to Edge of Bed Standby Assistance PT-Transfer Assessment Sit to and From Stand Sit to and from Stand Contact Guard Assistance,1 Person Assistance,Use of Upper Extremities Equipment Transfer Assistive Device Gait Belt,Front Wheeled Walker Orthotic/Prosthetic Devices or Brace: No Transfers Transfer Destination Chair Transfer Technique Ambulation Transfer Ability Level of Assist Contact Guard Assistance,1 Person Assistance,Use of Upper Extremities Comments Mobility Comments Pt states that BP cuff has been challenging for a read. BP and HR in LUE: 86/45, 100 and then PT checks when pt is sitting and it is 127/89, 106 and after stepping when sitting up in chair: 143/78, 100. Pt moves quickly and is mildly impulsive, not waiting for PT to completely set up, give cues for hand placement or get gait belt around her. Gait Assessment Gait Gait Assistance Required: Contact Guard Assist Distance (Feet) 3 Able to Maintain Weight Bearing Status Yes During Gait Assistive Devices Assistive Device Gait Belt,Front Wheeled Walker Orthotic/Prosthetic Devices or Brace: No Gait Deviations General Gait Pattern Antalgic,Decreased Stride Length,Decreased Feet Clearance,Flexed Trunk,Step-to Gait,Wide Based Gait Factors Limiting Gait Function Factors Limiting Gait Function Decreased Activity Tolerance, Decreased Strength,Limited Range of Motion,Pain,Poor Safety Awareness Comments Gait Comments Left knee ROM 20-40 deg today in chair, PT initially instructs step-to pattern for forward and backward gait with RW given pain. Pt states her pain is too high to walk further or try platform step. Stair Climbing Assessment Comments Stair Climbing Comments PT demonstrates forward and backward platform step training with walker and cues to ascend first with right foot, use of RW for stepping PT-Balance Assessment Sitting Balance and Reactions Static Sitting Balance Ability Good Dynamic Sitting Balance Ability Good Standing Balance and Reactions Static Standing Balance Ability Good Dynamic Standing Balance Ability Fair Device Used RW M5 PT-IP Objective Assessments Start: 01/03/24 10:39 Freq: NEEDED Status: Active Protocol: Document 01/04/24 11:17 MB (Rec: 01/04/24 12:06 MB [id number]) Orientation Orientation/Cognition Level of Alertness Alert Language Function Ability No Deficits Noted Safety Awareness Decreased Safety Awareness Memory Description No Deficits Noted Gross Range of Motion Upper Extremity ROM Impairments Defer to OT Lower Extremity ROM Assessment Left Impaired Impairments Pt with limited AROM left knee today Strength Lower Extremity Strength Assessment Left Impaired Comments Strength Comments Pt with limited left knee range and strength today, left ankle appears functional Coordination Assessment Gross Coordination Gross Coordination Impaired Sensation Assessment Comments Sensation Comments No paresthesias reported M6 PT-IP Treatment Start: 01/03/24 10:39 Freq: NEEDED Status: Active Protocol: Document 01/04/24 11:17 MB (Rec: 01/04/24 12:06 MB [id number]) Physical Therapy Treatment Exercises Exercises Ankle Pumps,Heel Slides Education Education Provided Weight Bearing Status,Safety Other Treatments Other Treatment Performed PT does not provide post-op booklet d/t partial knee and her range may not recover as quickly as full TKR and she attended pre-op appointment at [facility] and has exercises from there. The walker she brings in appears appropriate for use and ed in benefits of rollator if she progresses well to gait outside since her post-op appointment isn't until Jan 15. Ed pt not to use upright stationary bike until cleared by OPPT given this is a revision and partial knee and pain and range may be more of an issue. M7 PT-IP Assessment and Plan Start: 01/03/24 10:39 Freq: NEEDED Status: Active Protocol: Document 01/04/24 11:17 MB (Rec: 01/04/24 12:06 MB [id number]) PT Summary Assessment and Plan Potential Rehabilitation Potential Good Status of Condition at Evaluation Evolving Summary Impairments Pain,ROM,Strength,Balance,Bed Mobility,Transfers,Gait, Activity Tolerance Progress Towards Goals Slow Progress due to Pain Assessment Summary Pt is a pleasant 68 y/o female presenting with increased pain and decreased range, strength and mobility s/p partial knee revision on the left. is nearby during assessment and PT provides the education listed above under treatment as well as demo and education about stair training since PT may not be back today or until mid morning next date after rounds , if she is in hospital. They verbalize understanding of training. Pain limits increased gait and patient trying platform step training this date. She is mildly impulsive with mobility and requires CGA. will assist at d/c. Recommend up to chair and BR with nsg and RW. Goals Bed Mobility Goal Independent Transfer Goal Independent,Front Wheeled Walker Gait Goal Independent,Front Wheel Walker Gait Distance 100 Other Goals Pt will ascend and descend 1 platform walker with RW and no more than min A to allow safe home entrance. Days to Meet Goals 3 Frequency of Treatment Frequency Of Treatment Once a Day Treatment Plan Physical Therapy Treatment Plan Bed Mobility Training,Transfer Training,Gait Training, Therapeutic Exercise,Balance Retraining,Post Op Education, Discharge Planning,Hot or Cold Pack,Neuromuscular Re-ed, Coordination Retraining,Manual Therapy Weight Bearing Status Weight Bearing Status Weight Bear as Tolerated Allowed Weight Bearing Amount (enter % LLE or #) (%) Recommendations To Nursing Amount of Assist Needed 1 Person Assist Discharge Recommendations PT Discharge Recommendations Home with Assistance, Outpatient PT Transportation Needs at Discharge Private Vehicle
[2024-01-04 20:00] VITALS: BP 142/83; PULSE 101; RESP 18; TEMP 37.2; O2SAT 96
[2024-01-04] MEDS: SODIUM CHLORIDE 0.9% FLUSH 10 ML IV (21:12)
[2024-01-05] MEDS: HYDROMORPHONE 2 MG TABLET PO ×3 (04:39→11:19)
[2024-01-05] MEDS: HYDROMORPHONE 0.5 MG INJ IV (06:11)
[2024-01-05] MEDS: CEFAZOLIN 2 GM/100 ML PREMIX 100 ML IV (06:11)
[2024-01-05] MEDS: methocarbamoL 500 MG TABLET PO ×2 (06:20→12:00)
--- NOTE | 2024-01-05 06:45 | P.DS_ITS ---
History of Present Illness History of Present Illness Date Patient Seen: 01/05/24 Time Patient Seen: 06:45 Chief complaint: Left Total Shoulder Arthroplasty - Reverse Narrative: Operative Date/Time/Diagnoses Date of procedure: 01/02/24 Pre-op diagnosis: Progression of lateral compartment left knee osteoarthritis following prior medial unicompartmental knee arthroplasty Post-op diagnosis: same Procedure & Clinicians Procedure: 1. Dual component revision of prior partial knee arthroplasty to total knee arthroplasty (08897-20) 2. Interosseous administration of drugs in the tibia (33571) Same procedure as scheduled: Yes Surgeon: Jl Jenkins Linoleum Layer Apprentice: Ileana Hines Anesthesia Type: Spinal, Sedation, Peripheral nerve block and Local Operative Notes Estimated Blood Loss (mL): 150 Procedure in detail: Laterality Gap-Balanced Jovany Persona Medial-Congruent Primary Total Knee Arthroplasty Implants: * Size 7 narrow Cruciate Retaining Femoral Component * Size D Tibial Component with 14 x 30 stem extension * Size 16 Medial Congruent Polyethylene Insert * Unresurfaced Patella Discharge Providers Provider Date of admission: 01/02/24 11:42 Discharge Date: 01/05/24 Primary care physician: Gage Hancock DO Consults: 12/25/23 14:41 Consult to Anesthesiology Routine Comment: Consulting Provider: Anesthesiologist Reason for consultation: surgeon request - pain control (completed 11/14/23) 01/02/24 06:00 Consult to Anesthesiology Routine Comment: Consulting Provider: Anesthesiologist Reason for consultation: Regional block for post operative pain control Has provider been notified: No 01/02/24 17:14 Consult to Discharge Planning Routine Comment: Consult to Occupational Therapy Evaluate & Treat Comment: Physician Instructions: Evaluate and treat Consult to Physical Therapy Evaluate & Treat Comment: Physician Instructions: postop TKA protocol Discharge provider: Ileana Hines PA-C Summary Hospital Course Discharge Diagnosis: Progression of lateral compartment left knee osteoarthritis following prior medial unicompartmental knee arthroplasty, s/p Dual component revision of prior partial knee arthroplasty to total knee arthroplasty Hospital Course: Ms Rayo's hospital course was remarkable for difficulty with pain control. She is allergic to opioids, but she can tolerate synthetics including tramadol and dilaudid. She was incorrectly labeled as being unable to take NSAIDs d/t poor kidney function, but her GFR is > 60 and her creatinine was WNL preop. On the morning of POD# 3, she was still having pain but was feeling much better. She had worked w/ PT and wanted to go home. She was eating and voiding without difficulty. Cultures sent intraoperatively were preliminarily negative for both aerobic and anaerobic growth; this was unsurprising given the benign appearance of her joint during surgery. Exam Vital Signs (past 8 hours): Oxygen Delivery Method Room Air Oxygen Flow Rate 0 Narrative Exam Narrative: 5/5 strength in hip flexors, quadriceps, hamstrings, PF, DF, EHL on left. Sensation to light touch intact throughout LLE. Calf soft and compressible. KATHY functioning, CDI. Objective Labs 01/03/24 05:30 [facility] Medical History (Updated 01/03/24 @ 09:41 by Ileana Hines PA-C) Benign essential HTN Hot flashes Microalbuminuria CKD (chronic kidney disease) stage 3, GFR 30-59 ml/min Encounter for subsequent annual wellness visit (AWV) in Medicare patient Osteoarthritis (~1984) Painful menstrual periods Irregular menstrual cycle Fibroids (~1969) Hyperlipidemia Hypothyroidism Benign essential tremor Surgical History (Updated 01/03/24 @ 09:40 by Ileana Hines PA-C) History of right hip replacement (2015) S/P cervical spinal fusion (2014) Status post left partial knee replacement (08/08/20) Status post hysterectomy Family History Father Suicide Mother Cancer Diabetes mellitus History of heart disease Hypertension Stroke Social History household members: spouse Smoking Status: Former smoker alcohol intake: current Discharge Assessment & Plan Assessment and Plan Assessment: Progression of lateral compartment left knee osteoarthritis following prior medial unicompartmental knee arthroplasty, s/p Dual component revision of prior partial knee arthroplasty to total knee arthroplasty Plan of Treatment: Discharge home after AM PT. Multimodal pain control to include tramadol, dilaudid, methocarbamol, meloxicam, gabapentin, and APAP. VTE prophylaxis w/ ASA 81mg BID. Outpt PT, f/u in office as scheduled. Discharge Plan Discharge Plan Patient Disposition: Home Discharge orders & Medications Prescriptions: New hydromorphone 2 mg Tablet 2 mg PO Q4HR PRN (Reason: Pain, Severe (7-10)) Qty: 42 0RF tramadol 50 mg Tablet 50 mg PO Q4HR Qty: 60 0RF aspirin 81 mg Tablet,Delayed Release (Dr/Ec) 81 mg PO BID Qty: 60 0RF acetaminophen 500 mg capsule 1,000 mg PO Q8HR Qty: 180 0RF meloxicam 7.5 mg Tablet 7.5 mg PO BID Qty: 60 0RF Rx Instructions: DO NOT REFILL AFTER THIS RX D/T HISTORY OF CKD. methocarbamol 500 mg Tablet 500 mg PO QID PRN (Reason: muscle spasm) Qty: 120 0RF gabapentin 100 mg capsule 200 mg PO TID Qty: 180 0RF Continued gabapentin 100 mg capsule 200 mg PO 3XD estradiol 0.025 mg/24 hr patch weekly 1 patch transdermal QWEEK Qty: 4 11RF losartan 100 mg tablet 100 mg PO QPM triamterene-hydrochlorothiazid 37.5-25 mg tablet 1 tab PO QPM acetaminophen [Tylenol Extra Strength] 500 mg Tablet 1,000 mg PO TID Follow up/Referrals: Gage Hancock DO [Primary Care Provider] - Jl Jenkins MD [Physician] - 01/16/24 1:30 pm (Follow up w/ Rambo Parkinson PA-C, at [facility] in [place].) Diet/Activity/Treatments Diet: Diet as Tolerated Activity: Weightbearing as tolerated. Walk frequently! Cold/Heat Therapy: Ice to knee as needed for pain. Skin/Wound/Dressing Care Report to your healthcare provider any signs of infection, such as:: chills, fever, night sweats, unusual drainage and unusual redness Dressing: May shower. Leave dressing in place until follow up in office. In 5- 7 days, batteries will , at which point you can cut off the battery pack and dispose of it, but leave the dressing on. No bathing or otherwise soaking incision. Call the office if the dressing becomes saturated inside. Visit Report/Discharge Packet Instructions: DI for Knee Replacement Stand Alone Forms: Patient Portal/API, Stroke Signs & Symptoms, Surgery Discharge Discharge Data Primary Care Provider: Gage Hancock
[2024-01-05 08:00] VITALS: BP 162/79; PULSE 98; RESP 16; TEMP 37.3; O2SAT 96
--- NOTE | 2024-01-05 08:14 | CM.DPC ---
DCP Discharge Home Per Ortho PA, pt tolerating diet, voiding independently, and ambulating with PT and pain better controlled and medically stable to d/c home today with no identified discharge planning needs. Per PT, recommending home with spouse assist. Per RN, no concerns noted and waiting for spouse to arrive to provide transport home today. Plan: Patient to d/c home today via spouse POV and outpt f/u and no further SW needs at this time. ONOFRE Gao
[2024-01-05] MEDS: ASPIRIN EC 81 MG TABLET PO (08:35)
[2024-01-05] MEDS: DOCUSATE 100 MG CAPSULE PO (08:35)
[2024-01-05] MEDS: SODIUM CHLORIDE 0.9% FLUSH 10 ML IV (08:36)
[2024-01-05] MEDS: LOSARTAN 50 MG TABLET 100 MG PO (08:36)
[2024-01-05] MEDS: TRIAMTERENE/HCTZ 37.5/25 CAPSULE 1 CAP PO (08:36)
[2024-01-05] MEDS: MELOXICAM 7.5 MG TABLET PO (08:36)
[2024-01-05] MEDS: GABAPENTIN 100 MG CAPSULE 200 MG PO (08:36)
--- NOTE | 2024-01-05 10:02 | OT.IP.EVAL ---
Current Diagnoses Unilateral primary osteoarthritis, left knee (01/02/24) Chronic kidney disease, stage 2 (mild) (01/02/24) Allergy status to narcotic agent (01/02/24) Presence of left artificial knee joint (01/02/24) Presence of unspecified artificial knee joint (01/02/24) Surgery Performed Operation Date: 01/02/24 13:45 Actual Procedures p Revision of prior unicompartmental left knee arthroplasty to total knee arthroplasty(Left) - Jl Jenkins MD Past Medical History (Last Reviewed 01/02/24 @ 12:40 by Bri Charles, RANDY) Benign essential HTN Benign essential tremor CKD (chronic kidney disease) stage 3, GFR 30-59 ml/min Encounter for subsequent annual wellness visit (AWV) in Medicare patient Fibroids (~1969) Hot flashes Hyperlipidemia Hypothyroidism Irregular menstrual cycle Microalbuminuria Osteoarthritis (~1984) Painful menstrual periods Surgical History (Last Reviewed 01/02/24 @ 12:40 by Bri Charles, RANDY) History of right hip replacement (2015) S/P cervical spinal fusion (2014) Status post hysterectomy Status post left partial knee replacement (08/08/20) Occupational Therapy Inpatient Evaluation/Re-Eval M1 PT/OT-IP Prior Functional Status Start: 01/03/24 10:39 Freq: NEEDED Status: Active Protocol: Document 01/05/24 10:04 CGR (Rec: 01/05/24 10:16 CGR [id number]) Medical Review Prior Functional Status Medical History Reviewed Yes Diet/Fluid Consistency Regular Communication WNLs Mobility and Gait Pt reports that she was able to walk her dog and do other tasks but that she had a lot of pain in her left knee. Activities of Daily Living and IADL's Ind in all ADLs Social History Household Members spouse Living Arrangements House Number of Floors (Floors) One Floor Number of Stairs To Enter/Railing? 1 step to enter and no rail Home Environment Standard Height Toilet,Walk in Shower Home Equipment Front Wheel Walker,Power Wheelchair/Scooter,Hand Held Shower Employment Status Retired Additional Social History Comment Pt lives in [place] with her . M2 OT-IP Current Condition Start: 01/05/24 10:04 Freq: Status: Active Protocol: Document 01/05/24 10:04 CGR (Rec: 01/05/24 10:16 CGR [id number]) Occupational Therapy Current Condition Current Condition Evaluation Date 01/05/24 Treatment Diagnosis Revision to the L TKA Diagnosis Onset Date 01/02/24 Weight Bearing Status Weight Bearing Status Weight Bear as Tolerated M3 OT- IP Subjective and Pain Start: 01/05/24 10:04 Freq: Status: Active Protocol: Document 01/05/24 10:04 CGR (Rec: 01/05/24 10:16 CGR [id number]) OT- Subjective Occupational Therapy Visit Type Type Initial Evaluation Visit Start Time 09:08 Visit Stop Time 10:02 Notes Pt's spouse present throughout OT Pain Assessment Pain When Pain Assessed At Rest Pain Present Pain Present Pain Reported Location Left Knee Intensity 9 Scale Used Numeric (0 - 10) Management Techniques Distraction,Modification of Treatment,Re-positioning, Timing of Activity with Medications M4 OT- IP ADL's Start: 01/05/24 10:04 Freq: Status: Active Protocol: Document 01/05/24 10:04 CGR (Rec: 01/05/24 10:16 CGR [id number]) OT RAC-Fxav-Riciglc General Evaluation Self-Feeding Ability Independent Areas Needing Assistance Drinking From Cup/Glass Comments OT Self-Feeding Comments Coffee OT ADL-Grooming General Evaluation Grooming Ability Standby Assistance Areas Needing Assistance Face Washing Comments OT Grooming Comments Standing at sink OT ADL-Oral Care General Eval Oral Care Ability Standby Assistance Areas of Assistance Brushing Teeth,Retrieving/Set- Up of Items Comments Oral Care Comments Standing at sink OT ADL-Dressing General Eval Lower Body Dressing Ability Total Assistance Areas Needing Assistance Socks Comments OT Dressing Comments Pt's donned socks for patient. OT ADL-Toileting General Evaluation Toileting Ability Standby Assistance Comments OT Toileting Comments Seated on toielt OT ADL-Bathing Comments OT Bathing Comments Not performed M5 OT- IP IADL's Start: 01/05/24 10:04 Freq: Status: Active Protocol: Document 01/05/24 10:04 CGR (Rec: 01/05/24 10:16 CGR [id number]) OT-Instrumental Activities of Daily Living Deficits IADL Deficits Identified No Deficits Home Safety Awareness Awareness of Need for Assistance at Home Good Awareness Ability to Problem Solve Emergency Able to Problem Solve Situations Medication Management Medication Management No Deficits Identified Money Management Money Management No Deficits Identified Meal Preparation Meal Preparation Caregiver Provides Assist Manager Portable Manager Portable Caregiver Provides Assist Driving Driving Comments 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 M6 OT- IP Functional Cognition Start: 01/05/24 10:04 Freq: Status: Active Protocol: Document 01/05/24 10:04 CGR (Rec: 01/05/24 10:16 CGR [id number]) Cognitive Factors Limiting Selfcare Function Cognitive Ability Level of Alertness Alert Patient Orientation Name,Age,Birthday,Month,Date, Year,Day of Week,Place, Situation Attention Span Ability Capable of Focused Attention, Capable of Sustained Attention Ability to Follow Commands Able to Follow Multi-Step Commands OT- Vision and Hearing OT- Hearing Assessment OT- Hearing Assessment WFL OT- Vision Assessment Visual Acuity WFL Visual Attentiveness WFL Occular Pursuits WFL Visual Convergence WFL M7 OT- IP Mobility and Balance Start: 01/05/24 10:04 Freq: Status: Active Protocol: Document 01/05/24 10:04 CGR (Rec: 01/05/24 10:16 R [id number]) OT- Bed Mobility Assessment Supine to Sit Supine to Sit Assist Standby Assistance Scooting Scooting to Edge of Bed Standby Assistance OT-Transfer Assessment Sit to and From Stand Sit to and from Stand Standby Assistance,Contact Guard Assistance Transfers Transfer Ability Standby Assistance,Contact Guard Assistance Technique Transfer Destination Bed,Chair,Toilet Transfer Technique Stand Step Pivot Devices Transfer Assistive Devices Gait Belt,Front Wheeled Walker Comments Mobility Comments SBA to CGA for mobility. OT- Balance Assessment Sitting Balance and Reactions Static Sitting Balance Ability Normal Dynamic Sitting Balance Ability Normal M8 OT- IP Objective Assessments Start: 01/05/24 10:04 Freq: Status: Active Protocol: Document 01/05/24 10:04 CGR (Rec: 01/05/24 10:16 CGR [id number]) OT Gross Range of Motion Upper Extremity Range of Motion Assessment Within Functional Limits OT Strength Upper Extremity Strength Assessment Within Functional Limits Comments Strength Comments Grossly 4+/5 as seen with activity OT- Coordination Assessment Upper Extremity Finger to Nose Test Within Functional Limits Finger Tapping Test Within Functional Limits OT-Muscle Tone Assessment Muscle Tone WNL Yes OT Sensation Assessment Edema Edema Present Edema Comments To the L knee. M9 OT- IP Assessment and Plan Start: 01/05/24 10:04 Freq: Status: Active Protocol: Document 01/05/24 10:04 CGR (Rec: 01/05/24 10:16 CGR [id number]) OT Summary Assessment and Plan Potential Rehabilitation Potential Excellent Analytic Complexity at Evaluation Low Summary OT Impairments Pain,Range of Motion,Balance, Functional Mobility,Grooming, Dressing,Toileting,Bathing, Toilet Transfers,Shower Transfers,Activity Tolerance Progress Towards Goals Progressing Toward Goals Assessment Summary Pt presents as a low complexity evaluation s/p admit for L TKA revision. Pt is doing well but with increased pain of 9/10. Pt moved around the room, educated on resting in L knee extension, LB dressing, car transfer, and other needs. Pt and pt's feel ready for discharge home. Recommended BSC for use over toilet for ease. Pt's spouse planning to get one tomorrow. Goals Grooming Goal Independent Dressing Goal Independent Toileting Goal Independent Bathing Goal Independent Toilet Transfer Goal Independent Shower Transfer Goal Independent Days to Meet Goals 2 Frequency of Treatment Other frequency 5x a week Treatment Plan OT Treatment Plan ADL Training,Functional Mobility,Patient/Family Education,Discharge Planning Other Treatment Recommendations and Next Shower Treatment Focus Discharge Recommendations OT Discharge Recommendations Home with Assistance Home Equipment Needs BSC Transportation Needs at Discharge Private Vehicle
--- NOTE | 2024-01-05 10:19 | PT-IP ANOTE ---
PT reviews chart and notes d/c order is in. PT checks in on pt and is nearby. PT offers further step training and practice and pt and decline.
--- NOTE | 2024-01-05 12:57 | PC.NURSE ---
Discharge Note Patient A&O, VSS, RA, no complaints of pain/discomfort. Discharge packet reviewed with patient, all questions concerns/addressed. PIV discontinued. Patient able to dress self and pack all belongings. Patient taken down via wheelchair to POV.
== END 2024-01-05 12:00 | disposition home or self-care (01) | DRG 468 ==
PROVIDERS: Admitting Provider Orthopaedic Surgery Adult Reconstructive Orthopaedic Surgery; PCP Family Medicine; Referring Provider Orthopaedic Surgery Adult Reconstructive Orthopaedic Surgery; Visit Provider Orthopaedic Surgery Adult Reconstructive Orthopaedic Surgery
PROC: 0SRD0J9 Replacement of Left Knee Joint with Synthetic Substitute, Cemented, Open Approach (ICD-10-PCS; principal; 2024-01-02 13:45)
DX: M17.12 Unilateral primary osteoarthritis, left knee (principal); R00.0 Tachycardia, unspecified; D36.10 Benign neoplasm of peripheral nerves and autonomic nervous system, unspecified; N18.2 Chronic kidney disease, stage 2 (mild); I12.9 Hypertensive chronic kidney disease with stage 1 through stage 4 chronic kidney disease, or unspecified chronic kidney disease; Z96.652 Presence of left artificial knee joint; Z88.5 Allergy status to narcotic agent; Z87.891 Personal history of nicotine dependence
CPT/HCPCS: 36415; 73560; 85014; 85018; 87070; 87075; 87205; 97161; 97165; 97535; C1776; J0690; J1171; J2250; J2405; J2704; J3010; J3410